=== PATIENT | female | born 1940 | race Hispanic/Latino ===

== ENCOUNTER 2019-01-05 19:48 | Emergency (ER) | payer MEDICARE, SELFPAY ==
[2019-01-05 19:51] VITALS: BP 161/95; PULSE 112; RESP 18; TEMP 37.1; O2SAT 97
--- NOTE | 2019-01-05 20:31 | DI.CT.S_ITS ---
PROCEDURE: CT ABDOMEN PELVIS W CON INDICATIONS: Left upper quadrant pain with nausea vomit TECHNIQUE: After the administration of oral and intravenous contrast, 5 mm thick sections acquired from the diaphragms to the symphysis. 5 mm thick coronal and sagittal reformats were performed. For radiation dose reduction, the following was used: automated exposure control, adjustment of mA and/or kV according to patient size. COMPARISON: [facility], CR, XR CHEST 2VW, 05/22/2017, 23:49. FINDINGS: Image quality: Excellent. ABDOMEN: Lung bases: 8mm pulmonary nodule present in the left lung base. There is also trace left basilar pleural thickening. Wedge shaped subpleural consolidation present in the posterior left lower lobe on image 7 could represent pulmonary infarct, scarring/atelectasis versus pneumonia, technically indeterminate. Solid organs: Multiple ill-defined hepatic lesions are present, for example in the dome of the liver image 15 series 3 measuring 2.1 cm, and in the right lobe image 24 series 3 measuring 1.2 cm.. Gallbladder unremarkable. Biliary system is non-dilated. Pancreas atrophic otherwise grossly unremarkable. Spleen is normal in size and enhancement. No adrenal nodules. Kidneys are normal in size and enhancement, without hydronephrosis. Incidentally noted bilateral proximal ureterectasis, nonspecific. Peritoneum and bowel: Stomach, small bowel, and colon loops are normal in caliber and wall thickness. Moderate stool is present. No free fluid or air. Appendix is not clearly identified however no suspicious pericecal inflammatory changes are identified Nodes and vessels: No retroperitoneal or mesenteric adenopathy. Aorta and inferior vena cava are normal in caliber. Miscellaneous: No ventral hernias. PELVIS: Genitourinary: The bladder is grossly unremarkable. There is a right adnexal cystic appearing structure, differential includes ovarian cystic lesion versus (not be less likely) bladder diverticulum. This measures 3.0 x 6.4 cm Miscellaneous: No inguinal hernias or adenopathy. Bones: No suspicious bony lesions. Chronic appearing left inferior pubic ramus fracture with callus formation. Diffuse osteopenia. Numerous severe compression fractures at the thoracolumbar junction, technically indeterminate finding although to of these appear unchanged since 05/22/17. IMPRESSION: Multiple ill-defined hepatic lesions, suspicious for metastatic disease. Large cystic-appearing right adnexal lesion, cannot exclude ovarian origin i.e. cystic neoplasm. Therefore please correlate clinically and consider further evaluation with pelvic ultrasound and or gynecologic protocol MRI. Based on size, gynecologic consultation and laparoscopic evaluation may be necessary. Findings and recommendations were personally discussed by telephone with Dr. Wang in the emergency department on the morning of 01/06/19 8mm nonspecific left basilar pulmonary nodule. A followup noncontrast chest CT in 3 months could be performed for further assessment. Additional wedgelike consolidation in the posterior left lower lobe which is technically nonspecific and differential as above. Please correlate clinically. Multiple age indeterminate thoracolumbar compression fractures, 2 which appear to be unchanged since 05/22/17 Dictated by: Tio Rojas M.D. on 01/06/2019 at 7:56 Approved by: Tio Rojas M.D. on 01/06/2019 at 8:40
--- NOTE | 2019-01-05 20:32 | ED.ABDPAIN ---
HPI - Abdominal Pain <MAEGAN Blanton - Last Filed: 01/05/19 23:00> General Chief Complaint: Abdominal Pain Stated Complaint: VOMITING, FEVER, ADOMINAL PAIN Time Seen by Provider: 01/05/19 20:24 Source: patient Mode of arrival: ambulatory Limitations: language barrier History of Present Illness HPI narrative: 78-year-old female with history of asthma that is a nonsmoker here for complaint of having generalized abdominal pain worse on the left upper quadrant area over the past couple of days. She has also had fever and chills. She has had nausea and vomiting. No diarrhea. She denies any urinary symptoms. No flank pain. Family reports that the whole family has had similar like symptoms. Family member was just seen in the emergency room was positive for flu A. She is tolerating p.o. intake. No other concerns or complaint Related Data Previous Rx's Medication Instructions Recorded doxycycline hyclate 100 mg PO BID #13 cap 01/05/19 ondansetron 4 mg PO BID-TID PRN #10 tab 01/05/19 Allergies Allergy/AdvReac Type Severity Reaction Status Date / Time No Known Drug Allergies Allergy Verified 01/05/19 20:24 Review of Systems <MAEGAN Blanton - Last Filed: 01/05/19 23:00> Constitutional Reports chills, Reports fever(s), Denies lethargy and Denies weakness Eyes Denies change in vision, Denies eye discharge, Denies irritation and Denies loss of vision ENT Ears, Nose, Mouth, and Throat: Denies change in voice, Denies neck pain and Denies sore throat Cardiovascular Denies chest pain, Denies irregular heart rhythm, Denies lightheadedness, Denies palpitations, Denies dyspnea, Denies dyspnea on exertion and Denies orthopnea Respiratory Denies cough, Denies dyspnea, Denies dyspnea on exertion and Denies wheezing Gastrointestinal Gastrointestinal: Reports abdominal pain, Reports nausea and Reports vomiting Genitourinary Denies hematuria, Denies flank pain, Denies urinary incontinence and Denies urinary urgency Musculoskeletal Denies neck pain Integumentary/Breasts Denies pruritus, Denies erythema, Denies rash and Denies wounds Neurologic Denies confusion, Denies loss of vision and Denies weakness Psychiatric Denies anxiety, Denies confusion, Denies depression, Denies homicidal ideation and Denies suicidal ideation Endocrine Denies palpitations Hematologic/Lymphatic Denies easy bruising Allergic/Immunologic Denies wheezing PFSH <MAEGAN Blanton - Last Filed: 01/05/19 23:00> Social History Smoking Status: Never smoker Social History Smoking Status: Never smoker Exam <MAEGAN Blanton - Last Filed: 01/05/19 23:00> Initial Vital Signs Initial Vital Signs: Vital Signs Temperature 98.7 F 01/05/19 19:51 Pulse Rate 112 H 01/05/19 19:51 Respiratory Rate 18 01/05/19 19:51 Blood Pressure 161/95 H 01/05/19 19:51 Pulse Oximetry 97 01/05/19 19:51 Const General: cooperative and well developed Nutritional Appearance: well nourished Orientation: alert, awake, oriented x3 and not confused HENMT Mouth: oral mucosae normal and moist mucous membranes Eyes Conjunctivae: conjunctivae normal Sclera: sclerae normal Pupils: PERRL EOM: EOM intact bilaterally Resp Effort & Inspection: normal respiratory effort, able to speak in complete sentences, no respiratory distress and no use of accessory muscles Auscultation: clear to auscultation bilaterally, no rales, no rhonchi and no wheezes Cardio Rate: regular rate Rhythm: regular rhythm Heart Sounds: no click, no gallops, no murmurs and no rubs Pulses: normal peripheral pulses GI Inspection: non-distended Palpation: soft, no hepatosplenomegaly, No guarding, No pulsatile mass and tender (Tenderness to left upper quadrant area) Auscultation: normal bowel sounds General: No CVA tenderness Skin General: no rashes or lesions noted, No jaundice and No petechiae Neuro General: alert, oriented x3, gait normal and no focal motor deficits Speech: speech normal <Jenniffer Love DO - Last Filed: 01/06/19 03:02> Initial Vital Signs Initial Vital Signs: Vital Signs Temperature 98.7 F 01/05/19 19:51 Pulse Rate 112 H 01/05/19 19:51 Respiratory Rate 18 01/05/19 19:51 Blood Pressure 161/95 H 01/05/19 19:51 Pulse Oximetry 97 01/05/19 19:51 Course <MAEGAN Blanton - Last Filed: 01/05/19 23:00> Orders Ordered: ED Orders 01/05/19 20:20 Complete Blood Count AUTO DIFF Stat Comprehensive Metabolic Panel Stat Lipase Stat 01/05/19 20:31 CT abdomen pelvis w con Stat 01/05/19 21:50 Urine Microscopic Stat Discontinued Medications Doxycycline Hyclate (Vibramycin) 100 mg PO NOW ONE Stop: 01/05/19 22:57 Last Admin: 01/05/19 23:03 Dose: 100 mg Sodium Chloride (Normal Saline 0.9%) 1,000 mls @ 1,000 mls/hr IV BOLUS ONE Stop: 01/05/19 21:30 Last Infusion: 01/05/19 22:00 Dose: 0 mls/hr Admin: 01/05/19 20:47 Dose: 1,000 mls/hr Ondansetron HCl (Zofran) 4 mg IV NOW ONE Stop: 01/05/19 20:32 Last Admin: 01/05/19 20:47 Dose: 4 mg Ondansetron HCl (Zofran Odt Prepack) 1 bottle MISC SEEINSTR ONE Stop: 01/05/19 22:59 Last Admin: 01/05/19 23:03 Dose: 1 bottle Vital Signs - 8 hr 01/05/19 19:51 01/05/19 21:03 01/05/19 22:09 Temperature 98.7 F Pulse Rate 112 H 101 H 100 H Respiratory Rate 18 22 20 Blood Pressure 161/95 H Blood Pressure [Left Arm] 169/85 H 154/80 H Pulse Oximetry 97 97 97 01/05/19 22:30 01/05/19 23:22 Temperature 99.4 F Pulse Rate 106 H Respiratory Rate 20 Blood Pressure Blood Pressure [Left Arm] 161/102 H Pulse Oximetry 97 <Jenniffer Love DO - Last Filed: 01/06/19 03:02> Orders Ordered: ED Orders 01/05/19 20:20 Complete Blood Count AUTO DIFF Stat Comprehensive Metabolic Panel Stat Lipase Stat 01/05/19 20:31 CT abdomen pelvis w con Stat 01/05/19 21:50 Urine Microscopic Stat Discontinued Medications Doxycycline Hyclate (Vibramycin) 100 mg PO NOW ONE Stop: 01/05/19 22:57 Last Admin: 01/05/19 23:03 Dose: 100 mg Sodium Chloride (Normal Saline 0.9%) 1,000 mls @ 1,000 mls/hr IV BOLUS ONE Stop: 01/05/19 21:30 Last Infusion: 01/05/19 22:00 Dose: 0 mls/hr Admin: 01/05/19 20:47 Dose: 1,000 mls/hr Ondansetron HCl (Zofran) 4 mg IV NOW ONE Stop: 01/05/19 20:32 Last Admin: 01/05/19 20:47 Dose: 4 mg Ondansetron HCl (Zofran Odt Prepack) 1 bottle MISC SEEINSTR ONE Stop: 01/05/19 22:59 Last Admin: 01/05/19 23:03 Dose: 1 bottle Vital Signs - 8 hr 01/05/19 19:51 01/05/19 21:03 01/05/19 22:09 Temperature 98.7 F Pulse Rate 112 H 101 H 100 H Respiratory Rate 18 22 20 Blood Pressure 161/95 H Blood Pressure [Left Arm] 169/85 H 154/80 H Pulse Oximetry 97 97 97 01/05/19 22:30 01/05/19 23:22 Temperature 99.4 F Pulse Rate 106 H Respiratory Rate 20 Blood Pressure Blood Pressure [Left Arm] 161/102 H Pulse Oximetry 97 MDM - Abdominal Pain <MAEGAN Blanton - Last Filed: 01/05/19 23:00> Lab Data Result diagrams: 01/05/19 20:20 01/05/19 20:20 Lab Results 01/05/19 01/05/19 01/05/19 Range/Units 20:20 20:20 21:50 WBC 6.8 (4.5-11.0) X10^3/uL RBC 4.38 (4.0-5.2) X10^6/uL Hgb 13.4 (12.0-16.0) g/dL Hct 40.1 (36-46) % MCV 91.6 (80-100) fL MCH 30.6 (26-34) PG MCHC 33.4 (30-36) % RDW 12.8 (11.6-14.8) % Plt Count 280 (150-400) X10^3/uL Neut % (Auto) 80.8 H (50-75) % Lymph % (Auto) 9.0 L (25-40) % Gilchrist % (Auto) 7.3 (3-14) % Eos % (Auto) 1.3 L (2-4) % Baso % (Auto) 1.6 (0-2) % Neut # (Auto) 5500 (7333-8491) /uL Lymph # (Auto) 600 L (9205-8434) /uL Gilchrist # (Auto) 500 (0-900) /uL Eos # (Auto) 100 (0-450) /uL Baso # (Auto) 100 (0-100) /uL Sodium 139 (137-145) mmol/L Potassium 3.4 (3.4-5.1) mmol/L Chloride 96 L (98-107) mmol/L Carbon Dioxide 26 (22-32) mmol/L BUN 16 (7-17) mg/dL Creatinine 0.80 (0.52-1.04) mg/dL Estimated GFR > 60.0 (>60) mL/min BUN/Creatinine Ratio 20.0 (6-22) Glucose 103 (80-110) mg/dL Calcium 9.5 (8.4-10.2) mg/dL Total Bilirubin 0.6 (0.2-1.3) mg/dL AST 28 (14-36) IU/L ALT 17 (9-52) IU/L Alkaline Phosphatase 90 (38-126) U/L Total Protein 8.7 H (6.3-8.2) g/dL Albumin 4.7 (3.5-5.0) g/dL Globulin 4.0 (1.7-4.1) g/dL Albumin/Globulin Ratio 1.2 (1.0-2.8) Lipase 13 L (23-300) U/L Urine RBC 1-5/hpf (0-5/HPF) Urine WBC None seen (0-5/HPF) Urine Bacteria None seen (None) Ur Culture Indicated? Cult not indicated Point of care testing: Urine Dip Bedside Urine Glucose Negative Bedside Urine Bilirubin - Negative Bedside Urine Ketone ++ 40 Urine Specific [place] 1.015 Bedside Urine Occult Blood ++ Bedside Urine pH 6.5 Bedside Urine Protein +/- 15 Bedside Urine Urobilinogen +/- 1mg Bedside Urine Nitrite - Negative Bedside Urine Leukocytes - Negative Esterase MDM Narrative Medical decision making narrative: CT scan of the abdomen shows possible metastatic disease throughout the liver. She is not tender on the right area. Her liver enzymes were unremarkable. CT of the abdomen also shows left lower lobe consolidation and small left pleural effusion questionable for pneumonia atelectasis or pulmonary infarct. Her white count was unremarkable. CBC was otherwise unremarkable. Procalcitonin and lactate were negative. Family member was positive for influenza so differential between influenza and starting pneumonia. She is covered with doxycycline vital signs are stable. She is no acute distress. She is prescribed Zofran to help with nausea vomiting plenty of fluids. Follow up with primary care provider next few days for re-evaluation. For any worsening symptoms return to the emergency room. Further evaluation of liver solid lesions to the liver is recommended. Plenty of fluids and rest. For any worsening symptoms return to the emergency room. Urinalysis was negative for urinary tract infection <Jenniffer Love DO - Last Filed: 01/06/19 03:02> Lab Data Lab Results 01/05/19 01/05/19 01/05/19 Range/Units 20:20 20:20 21:50 WBC 6.8 (4.5-11.0) X10^3/uL RBC 4.38 (4.0-5.2) X10^6/uL Hgb 13.4 (12.0-16.0) g/dL Hct 40.1 (36-46) % MCV 91.6 (80-100) fL MCH 30.6 (26-34) PG MCHC 33.4 (30-36) % RDW 12.8 (11.6-14.8) % Plt Count 280 (150-400) X10^3/uL Neut % (Auto) 80.8 H (50-75) % Lymph % (Auto) 9.0 L (25-40) % Gilchrist % (Auto) 7.3 (3-14) % Eos % (Auto) 1.3 L (2-4) % Baso % (Auto) 1.6 (0-2) % Neut # (Auto) 5500 (4520-2136) /uL Lymph # (Auto) 600 L (5303-8856) /uL Gilchrist # (Auto) 500 (0-900) /uL Eos # (Auto) 100 (0-450) /uL Baso # (Auto) 100 (0-100) /uL Sodium 139 (137-145) mmol/L Potassium 3.4 (3.4-5.1) mmol/L Chloride 96 L (98-107) mmol/L Carbon Dioxide 26 (22-32) mmol/L BUN 16 (7-17) mg/dL Creatinine 0.80 (0.52-1.04) mg/dL Estimated GFR > 60.0 (>60) mL/min BUN/Creatinine Ratio 20.0 (6-22) Glucose 103 (80-110) mg/dL Calcium 9.5 (8.4-10.2) mg/dL Total Bilirubin 0.6 (0.2-1.3) mg/dL AST 28 (14-36) IU/L ALT 17 (9-52) IU/L Alkaline Phosphatase 90 (38-126) U/L Total Protein 8.7 H (6.3-8.2) g/dL Albumin 4.7 (3.5-5.0) g/dL Globulin 4.0 (1.7-4.1) g/dL Albumin/Globulin Ratio 1.2 (1.0-2.8) Lipase 13 L (23-300) U/L Urine RBC 1-5/hpf (0-5/HPF) Urine WBC None seen (0-5/HPF) Urine Bacteria None seen (None) Ur Culture Indicated? Cult not indicated Point of care testing: Urine Dip Bedside Urine Glucose Negative Bedside Urine Bilirubin - Negative Bedside Urine Ketone ++ 40 Urine Specific [place] 1.015 Bedside Urine Occult Blood ++ Bedside Urine pH 6.5 Bedside Urine Protein +/- 15 Bedside Urine Urobilinogen +/- 1mg Bedside Urine Nitrite - Negative Bedside Urine Leukocytes - Negative Esterase Discharge Plan Departure Patient Disposition: Home Clinical Impression: Nausea & vomiting Qualifiers: Vomiting type: unspecified Vomiting Intractability: unspecified Qualified Code(s): R11.2 - Nausea with vomiting, unspecified Fever Qualifiers: Fever type: unspecified Qualified Code(s): R50.9 - Fever, unspecified Pneumonia Qualifiers: Pneumonia type: due to unspecified organism Laterality: left Lung location: lower lobe of lung Qualified Code(s): J18.1 - Lobar pneumonia, unspecified organism Discharge Date/Time: 01/05/19 23:32 Interventions: ED Discharge Assessment Last Done: 01/05/19 23:22 Instructions: Nausea and Vomiting-Adult Activity Restrictions/Additional Instructions: Laboratory results today were unremarkable. CT of the abdomen shows possible starting pneumonia to the left lower lung area. Your placed on antibiotic called doxycycline use as directed. Due to fluid being in the household most likely symptoms are secondary to influenza. [id number] Tylenol as needed for fever and discomfort. Urine prescribed Zofran to help with nausea use as directed. Plenty of fluids. CT of the abdomen also shows multiple nodules to the liver. Cause of these lesions/nodules is undetermined at this time however worse case area can be malignant in nature. Follow up with her primary care provider in the next few days for re-evaluation and further diagnostics. CT of the abdomen also showed multiple compression fractures to the spine of undetermined age. Also follow up with primary care provider. Return emergency room for any worsening symptoms. Prescriptions: New doxycycline hyclate 100 mg capsule 100 mg PO BID Qty: 13 RF: 0 ondansetron 4 mg tablet,disintegrating 4 mg PO BID-TID PRN (Reason: nausea and vomiting) Qty: 10 RF: 0 Referrals: [facility] [Provider Group] <Jenniffer Love DO - Last Filed: 01/06/19 03:02> Cosign ED Attending Mariumature Attestation: I was immediately available in the department for consultation. Documentation has been reviewed. I agree with assessment and plan.
[2019-01-05 20:42] LABS: Add Manual Diff / Slide Review NO; Basophils Absolute Auto 100 /uL (0-100); Basophils Percent Auto 1.6 % (0-2); Eosinophils Absolute Auto 100 /uL (0-450); Eosinophils Percent Auto 1.3 % (2-4); Hematocrit 40.1 % (36-46); Hemoglobin 13.4 g/dL (12.0-16.0); Lymphocytes Absolute Auto 600 /uL (1100-4500); Mean Corpuscular HGB Conc 33.4 % (30-36); Mean Corpuscular Hemoglobin 30.6 PG (26-34); Mean Corpuscular Volume 91.6 fL (80-100); Monocytes Absolute Auto 500 /uL (0-900); Monocytes Percent Auto 7.3 % (3-14); Neutrophils Absolute Auto 5500 /uL (1500-7000); Neutrophils Percent Auto 80.8 % (50-75); Platelet Count 280 X10^3/uL (150-400); Red Blood Cell Count 4.38 X10^6/uL (4.0-5.2); Red Cell Distribution Width 12.8 % (11.6-14.8); White Blood Cell Count 6.8 X10^3/uL (4.5-11.0)
[2019-01-05] MEDS: SODIUM CHLORIDE 0.9% 1,000 ML 1000 ML IV (20:47)
[2019-01-05] MEDS: ONDANSETRON 4 MG/2 ML INJ IV (20:47)
[2019-01-05 20:54] LABS: Alanine Aminotransferase 17 IU/L (9-52); Albumin 4.7 g/dL (3.5-5.0); Albumin Globulin Ratio 1.2 (1.0-2.8); Alkaline Phosphatase 90 U/L (38-126); Aspartate Aminotransferase 28 IU/L (14-36); Bilirubin Total 0.6 mg/dL (0.2-1.3); Blood Urea Nitrogen 16 mg/dL (7-17); Calcium 9.5 mg/dL (8.4-10.2); Carbon Dioxide 26 mmol/L (22-32); Chloride 96 mmol/L (98-107); Estimated Glomerular Filt Rate > 60.0 mL/min (>60); Glucose 103 mg/dL (80-110); HEMOLYSIS < 15 (0-50); Lipase 13 U/L (23-300); Potassium 3.4 mmol/L (3.4-5.1); Sodium 139 mmol/L (137-145); Total Protein 8.7 g/dL (6.3-8.2)
[2019-01-05 21:03] VITALS: BP 169/85; PULSE 101; RESP 22; O2SAT 97
[2019-01-05 22:05] LABS: Bacteria Urine None Seen; WBC Urine None Seen (0-5/HPF)
[2019-01-05 22:09] VITALS: BP 154/80; PULSE 100; RESP 20; O2SAT 97
--- NOTE | 2019-01-05 22:09 | ED_ITS ---
HPI - Abdominal Pain <MAEGAN Blanton - Last Filed: 01/05/19 23:00> General Chief Complaint: Abdominal Pain Stated Complaint: VOMITING, FEVER, ADOMINAL PAIN Time Seen by Provider: 01/05/19 20:24 Source: patient Mode of arrival: ambulatory Limitations: language barrier History of Present Illness HPI narrative: 78-year-old female with history of asthma that is a nonsmoker here for complaint of having generalized abdominal pain worse on the left upper quadrant area over the past couple of days. She has also had fever and chills. She has had nausea and vomiting. No diarrhea. She denies any urinary symptoms. No flank pain. Family reports that the whole family has had similar like s ymptoms. Family member was just seen in the emergency room was positive for flu A. She is tolerating p.o. intake. No other concerns or complaint Related Data Previous Rx's Medication Instructions Recorded doxycycline hyclate 100 mg PO BID #13 cap 01/05/19 ondansetron 4 mg PO BID-TID PRN #10 tab 01/05/19 Allergies Allergy/AdvReac Type Severity Reaction Status Date / Time No Known Drug Allergies Allergy Verified 01/05/19 20:24 Review of Systems <MAEGAN Blanton - Last Filed: 01/05/19 23:00> Constitutional Reports chills, Reports fever(s), Denies lethargy and Denies weakness Eyes Denies change in vision, Denies eye discharge, Denies irritation and Denies loss of vision ENT Ears, Nose, Mouth, and Throat: Denies change in voice, Denies neck pain and Denies sore throat Cardiovascular Denies chest pain, Denies irregular heart rhythm, Denies lightheadedness, Denies palpitations, Denies dyspnea, Denies dyspnea on exertion and Denies orthopnea Respiratory Denies cough, Denies dyspnea, Denies dyspnea on exertion and Denies wheezing Gastrointestinal Gastrointestinal: Reports abdominal pain, Reports nausea and Reports vomiting Genitourinary Denies hematuria, Denies flank pain, Denies urinary incontinence and Denies urinary urgency Musculoskeletal Denies neck pain Integumentary/Breasts Denies pruritus, Denies erythema, Denies rash and Denies wounds Neurologic Denies confusion, Denies loss of vision and Denies weakness Psychiatric Denies anxiety, Denies confusion, Denies depression, Denies homicidal ideation and Denies suicidal ideation Endocrine Denies palpitations Hematologic/Lymphatic Denies easy bruising Allergic/Immunologic Denies wheezing PFSH <MAEGAN Blanton - Last Filed: 01/05/19 23:00> Social History Smoking Status: Never smoker Social History Smoking Status: Never smoker Exam <MAEGAN Blanton - Last Filed: 01/05/19 23:00> Initial Vital Signs Initial Vital Signs: Vital Signs Temperature 98.7 F 01/05/19 19:51 Pulse Rate 112 H 01/05/19 19:51 Respiratory Rate 18 01/05/19 19:51 Blood Pressure 161/95 H 01/05/19 19:51 Pulse Oximetry 97 01/05/19 19:51 Const General: cooperative and well developed Nutritional Appearance: well nourished Orientation: alert, awake, oriented x3 and not confused HENMT Mouth: oral mucosae normal and moist mucous membranes Eyes Conjunctivae: conjunctivae normal Sclera: sclerae normal Pupils: PERRL EOM: EOM intact bilaterally Resp Effort & Inspection: normal respiratory effort, able to speak in complete sentences, no respiratory distress and no use of accessory muscles Auscultation: clear to auscultation bilaterally, no rales, no rhonchi and no wheezes Cardio Rate: regular rate Rhythm: regular rhythm Heart Sounds: no click, no gallops, no murmurs and no rubs Pulses: normal peripheral pulses GI Inspection: non-distended Palpation: soft, no hepatosplenomegaly, No guarding, No pulsatile mass and tender (Tenderness to left upper quadrant area) Auscultation: normal bowel sounds General: No CVA tenderness Skin General: no rashes or lesions noted, No jaundice and No petechiae Neuro General: alert, oriented x3, gait normal and no focal motor deficits Speech: speech normal <Jenniffer Love DO - Last Filed: 01/06/19 03:02> Initial Vital Signs Initial Vital Signs: Vital Signs Temperature 98.7 F 01/05/19 19:51 Pulse Rate 112 H 01/05/19 19:51 Respiratory Rate 18 01/05/19 19:51 Blood Pressure 161/95 H 01/05/19 19:51 Pulse Oximetry 97 01/05/19 19:51 Course <MAEGAN Blanton - Last Filed: 01/05/19 23:00> Orders Ordered: ED Orders 01/05/19 20:20 Complete Blood Count AUTO DIFF Stat Comprehensive Metabolic Panel Stat Lipase Stat 01/05/19 20:31 CT abdomen pelvis w con Stat 01/05/19 21:50 Urine Microscopic Stat Discontinued Medications Doxycycline Hyclate (Vibramycin) 100 mg PO NOW ONE Stop: 01/05/19 22:57 Last Admin: 01/05/19 23:03 Dose: 100 mg Sodium Chloride (Normal Saline 0.9%) 1,000 mls @ 1,000 mls/hr IV BOLUS ONE Stop: 01/05/19 21:30 Last Infusion: 01/05/19 22:00 Dose: 0 mls/hr Admin: 01/05/19 20:47 Dose: 1,000 mls/hr Ondansetron HCl (Zofran) 4 mg IV NOW ONE Stop: 01/05/19 20:32 Last Admin: 01/05/19 20:47 Dose: 4 mg Ondansetron HCl (Zofran Odt Prepack) 1 bottle MISC SEEINSTR ONE Stop: 01/05/19 22:59 Last Admin: 01/05/19 23:03 Dose: 1 bottle Vital Signs - 8 hr 01/05/19 19:51 01/05/19 21:03 01/05/19 22:09 Temperature 98.7 F Pulse Rate 112 H 101 H 100 H Respiratory Rate 18 22 20 Blood Pressure 161/95 H Blood Pressure [Left Arm] 169/85 H 154/80 H Pulse Oximetry 97 97 97 01/05/19 22:30 01/05/19 23:22 Temperature 99.4 F Pulse Rate 106 H Respiratory Rate 20 Blood Pressure Blood Pressure [Left Arm] 161/102 H Pulse Oximetry 97 <Jenniffer Love DO - Last Filed: 01/06/19 03:02> Orders Ordered: ED Orders 01/05/19 20:20 Complete Blood Count AUTO DIFF Stat Comprehensive Metabolic Panel Stat Lipase Stat 01/05/19 20:31 CT abdomen pelvis w con Stat 01/05/19 21:50 Urine Microscopic Stat Discontinued Medications Doxycycline Hyclate (Vibramycin) 100 mg PO NOW ONE Stop: 01/05/19 22:57 Last Admin: 01/05/19 23:03 Dose: 100 mg Sodium Chloride (Normal Saline 0.9%) 1,000 mls @ 1,000 mls/hr IV BOLUS ONE Stop: 01/05/19 21:30 Last Infusion: 01/05/19 22:00 Dose: 0 mls/hr Admin: 01/05/19 20:47 Dose: 1,000 mls/hr Ondansetron HCl (Zofran) 4 mg IV NOW ONE Stop: 01/05/19 20:32 Last Admin: 01/05/19 20:47 Dose: 4 mg Ondansetron HCl (Zofran Odt Prepack) 1 bottle MISC SEEINSTR ONE Stop: 01/05/19 22:59 Last Admin: 01/05/19 23:03 Dose: 1 bottle Vital Signs - 8 hr 01/05/19 19:51 01/05/19 21:03 01/05/19 22:09 Temperature 98.7 F Pulse Rate 112 H 101 H 100 H Respiratory Rate 18 22 20 Blood Pressure 161/95 H Blood Pressure [Left Arm] 169/85 H 154/80 H Pulse Oximetry 97 97 97 01/05/19 22:30 01/05/19 23:22 Temperature 99.4 F Pulse Rate 106 H Respiratory Rate 20 Blood Pressure Blood Pressure [Left Arm] 161/102 H Pulse Oximetry 97 MDM - Abdominal Pain <MAEGAN Blanton - Last Filed: 01/05/19 23:00> Lab Data Result diagrams: 01/05/19 20:20 01/05/19 20:20 Lab Results 01/05/19 01/05/19 01/05/19 Range/Units 20:20 20:20 21:50 WBC 6.8 (4.5-11.0) X10^3/uL RBC 4.38 (4.0-5.2) X10^6/uL Hgb 13.4 (12.0-16.0) g/dL Hct 40.1 (36-46) % MCV 91.6 (80-100) fL MCH 30.6 (26-34) PG MCHC 33.4 (30-36) % RDW 12.8 (11.6-14.8) % Plt Count 280 (150-400) X10^3/uL Neut % (Auto) 80.8 H (50-75) % Lymph % (Auto) 9.0 L (25-40) % [place] % (Auto) 7.3 (3-14) % Eos % (Auto) 1.3 L (2-4) % Baso % (Auto) 1.6 (0-2) % Neut # (Auto) 5500 (8253-6220) /uL Lymph # (Auto) 600 L (1978-4046) /uL [place] # (Auto) 500 (0-900) /uL Eos # (Auto) 100 (0-450) /uL Baso # (Auto) 100 (0-100) /uL Sodium 139 (137-145) mmol/L Potassium 3.4 (3.4-5.1) mmol/L Chloride 96 L (98-107) mmol/L Carbon Dioxide 26 (22-32) mmol/L BUN 16 (7-17) mg/dL Creatinine 0.80 (0.52-1.04) mg/dL Estimated GFR > 60.0 (>60) mL/min BUN/Creatinine Ratio 20.0 (6-22) Glucose 103 (80-110) mg/dL Calcium 9.5 (8.4-10.2) mg/dL Total Bilirubin 0.6 (0.2-1.3) mg/dL AST 28 (14-36) IU/L ALT 17 (9-52) IU/L Alkaline Phosphatase 90 (38-126) U/L Total Protein 8.7 H (6.3-8.2) g/dL Albumin 4.7 (3.5-5.0) g/dL Globulin 4.0 (1.7-4.1) g/dL Albumin/Globulin Ratio 1.2 (1.0-2.8) Lipase 13 L (23-300) U/L Urine RBC 1-5/hpf (0-5/HPF) Urine WBC None seen (0-5/HPF) Urine Bacteria None seen (None) Ur Culture Indicated? Cult not indicated Point of care testing: Urine Dip Bedside Urine Glucose Negative Bedside Urine Bilirubin - Negative Bedside Urine Ketone ++ 40 Urine Specific [place] 1.015 Bedside Urine Occult Blood ++ Bedside Urine pH 6.5 Bedside Urine Protein +/- 15 Bedside Urine Urobilinogen +/- 1mg Bedside Urine Nitrite - Negative Bedside Urine Leukocytes - Negative Esterase MDM Narrative Medical decision making narrative: CT scan of the abdomen shows possible met astatic disease throughout the liver. She is not tender on the right area. Her liver enzymes were unremarkable. CT of the abdomen also shows left lower lobe consolidation and small left pleural effusion questionable for pneumonia atelectasis or pulmonary infarct. Her white count was unremarkable. CBC was otherwise unremarkable. Procalcitonin and lactate were negative. Family member was positive for influenza so differential between influenza and starting pneumonia. She is covered with doxycycline vital signs are stable. She is no acute distress. She is prescribed Zofran to help with nausea vomiting plenty of fluids. Follow up with primary care provider next few days for re-evaluation. For any worsening symptoms return to the emergency room. Further evaluation of liver solid lesions to the liver is recommended. Plenty of fluids and rest. For any worsening symptoms return to the emergency room. Urinalysis was negative for urinary tract infection <Jenniffer Love DO - Last Filed: 01/06/19 03:02> Lab Data Lab Results 01/05/19 01/05/19 01/05/19 Range/Units 20:20 20:20 21:50 WBC 6.8 (4.5-11.0) X10^3/uL RBC 4.38 (4.0-5.2) X10^6/uL Hgb 13.4 (12.0-16.0) g/dL Hct 40.1 (36-46) % MCV 91.6 (80-100) fL MCH 30.6 (26-34) PG MCHC 33.4 (30-36) % RDW 12.8 (11.6-14.8) % Plt Count 280 (150-400) X10^3/uL Neut % (Auto) 80.8 H (50-75) % Lymph % (Auto) 9.0 L (25-40) % [place] % (Auto) 7.3 (3-14) % Eos % (Auto) 1.3 L (2-4) % Baso % (Auto) 1.6 (0-2) % Neut # (Auto) 5500 (0943-2107) /uL Lymph # (Auto) 600 L (1932-7913) /uL [place] # (Auto) 500 (0-900) /uL Eos # (Auto) 100 (0-450) /uL Baso # (Auto) 100 (0-100) /uL Sodium 139 (137-145) mmol/L Potassium 3.4 (3.4-5.1) mmol/L Chloride 96 L (98-107) mmol/L Carbon Dioxide 26 (22-32) mmol/L BUN 16 (7-17) mg/dL Creatinine 0.80 (0.52-1.04) mg/dL Estimated GFR > 60.0 (>60) mL/min BUN/Creatinine Ratio 20.0 (6-22) Glucose 103 (80-110) mg/dL Calcium 9.5 (8.4-10.2) mg/dL Total Bilirubin 0.6 (0.2-1.3) mg/dL AST 28 (14-36) IU/L ALT 17 (9-52) IU/L Alkaline Phosphatase 90 (38-126) U/L Total Protein 8.7 H (6.3-8.2) g/dL Albumin 4.7 (3.5-5.0) g/dL Globulin 4.0 (1.7-4.1) g/dL Albumin/Globulin Ratio 1.2 (1.0-2.8) Lipase 13 L (23-300) U/L Urine RBC 1-5/hpf (0-5/HPF) Urine WBC None seen (0-5/HPF) Urine Bacteria None seen (None) Ur Culture Indicated? Cult not indicated Point of care testing: Urine Dip Bedside Urine Glucose Negative Bedside Urine Bilirubin - Negative Bedside Urine Ketone ++ 40 Urine Specific [place] 1.015 Bedside Urine Occult Blood ++ Bedside Urine pH 6.5 Bedside Urine Protein +/- 15 Bedside Urine Urobilinogen +/- 1mg Bedside Urine Nitrite - Negative Bedside Urine Leukocytes - Negative Esterase Discharge Plan Departure Patient Disposition: Home Clinical Impression: Nausea & vomiting Qualifiers: Vomiting type: unspecified Vomiting Intractability: unspecified Qualified Code(s): R11.2 - Nausea with vomiting, unspecified Fever Qualifiers: Fever type: unspecified Qualified Code(s): R50.9 - Fever, unspecified Pneumonia Qualifiers: Pneumonia type: due to unspecified organism Laterality: left Lung location: lower lobe of lung Qualified Code(s): J18.1 - Lobar pneumonia, unspecified organism Discharge Date/Time: 01/05/19 23:32 Interventions: ED Discharge Assessment Last Done: 01/05/19 23:22 Instructions: Nausea and Vomiting-Adult Activity Restrictions/Additional Instructions: Laboratory results today were unremarkable. CT of the abdomen shows possible starting pneumonia to the left lower lung area. Your placed on antibiotic called doxycycline use as directed. Due to fluid being in the household most likely symptoms are secondary to influenza. [id number] Tylenol as needed for fever and discomfort. Urine prescribed Zofran to help with nausea use as directed. Plenty of fluids. CT of the abdomen also shows multiple nodules to the liver. Cause of these lesions/nodules is undetermined at this time however worse case area can be malignant in nature. Follow up with her primary care provider in the next few days for re-evaluation and further diagnostics. CT of the abdomen also showed multiple compression fractures to the spine of undetermined age. Also follow up with primary care provider. Return emergency room for any worsening symptoms. Prescriptions: New doxycycline hyclate 100 mg capsule 100 mg PO BID Qty: 13 RF: 0 ondansetron 4 mg tablet,disintegrating 4 mg PO BID-TID PRN (Reason: nausea and vomiting) Qty: 10 RF: 0 Referrals: [facility] [Provider Group] <Jenniffer Love DO - Last Filed: 01/06/19 03:02> Cosign ED Attending Mariumature Attestation: I was immediately available in the department for consultation. Documentation has been reviewed. I agree with assessment and plan.
[2019-01-05 22:16] LABS: Culture Indicated Urine Cult Not Indicated; RBC Urine 1-5/HPF (0-5/HPF)
[2019-01-05 22:30] VITALS: BP 161/102; PULSE 106; RESP 20; O2SAT 97
[2019-01-05] MEDS: ONDANSETRON 4 MG ODT PREPACK 1 BOTTLE MISC (23:03)
[2019-01-05] MEDS: DOXYCYCLINE HYCLATE 100 MG TABLET PO (23:03)
[2019-01-05 23:22] VITALS: TEMP 37.4
== END 2019-01-05 23:32 | disposition home or self-care (01) ==
PROVIDERS: Emergency Provider Nurse Practitioner Family
DX: J18.1 Lobar pneumonia, unspecified organism (principal)
CPT/HCPCS: 36591; 74177; 80053; 81003; 81015; 83690; 85025; 93005; 96361; 96374; 99283; 99285; J2405; Q9967